=== PATIENT | male | born 1975 | race Caucasian/White ===

== ENCOUNTER 2025-05-16 09:35 | Emergency (ER) | payer OTHER, SELFPAY ==
[2025-05-16 09:40] VITALS: BP 118/84; PULSE 64; RESP 16; TEMP 36.6; O2SAT 99
--- NOTE | 2025-05-16 10:32 | ED.EAR ---
HPI - Ear Problem General Chief complaint: Ear Stated complaint: Ear Pain Time Seen by Provider: 05/16/25 09:50 Source: patient and RN notes reviewed Mode of arrival: ambulatory Limitations: no limitations History of Present Illness HPI Narrative: Patient presents today complaining of left ear redness, pain, swelling since yesterday that has slightly worsened this morning. He has taken Aleve with some improvement. He also reported some feelings of subjective fever yesterday but when take any was 98.9. No swimming but has been golfing outside frequently recently. Denies recent drainage from the ear. Related Data Home Medications ?Medication ?Instructions ?Recorded ?Confirmed ?Last Taken ?Type carvedilol 3.125 mg tablet mg 05/16/25 Unknown History ramipril 2.5 mg capsule mg 05/16/25 Unknown History Allergies Allergy/AdvReac Type Severity Reaction Status Date / Time No Known Allergies Allergy Unverified 06/20/11 16:15 PMFSH Comments At time of signature, I have reviewed and agree with nursing past medical, surgical, social and family history unless otherwise noted. Please see nursing chart for further information. There is no relevant family history pertinent to the presenting complaint Exam Narrative: GENERAL: Well-appearing, well-nourished, and in no acute distress. HEAD: Normocephalic, atraumatic. EYES: EOMI. No redness or drainage. Conjunctivae normal. ENT: Mucous membranes pink and moist. Left ear: TM normal.+ tragal tenderness. No movement tenderness. No mastoid tenderness. Erythema and mild edema to the canal and entire external ear. External ear nontender to palpation. Canal mildly tender to palpation. Erythema and edema does not extend into the neck or face. No debris or drainage in the ear canal. Ear canal is patent enough for ear drops. NECK: Normal AROM. Supple. No lymphadenopathy. CHEST: No respiratory distress. EXTREMITIES: Normal range of motion. No edema. SKIN: Warm, dry, no rash. Capillary refill normal. Normal skin turgor. NEURO: No focal deficits. Alert and oriented x3. Gait steady. PSYCH: Normal affect. No signs of depression or anxiety. Course Course Level of Care: Express Care Visit Vital Signs Vital signs: Vital Signs Temperature 97.9 F 05/16/25 09:40 Pulse Rate 64 05/16/25 09:40 Respiratory Rate 16 05/16/25 09:40 Blood Pressure 118/84 05/16/25 09:40 Pulse Oximetry 99 05/16/25 09:40 Oxygen Delivery Room Air 05/16/25 09:40 Temperature 97.9 F 05/16/25 09:40 Pulse Rate 64 05/16/25 09:40 Respiratory Rate 16 05/16/25 09:40 Blood Pressure 118/84 05/16/25 09:40 Pulse Oximetry 99 05/16/25 09:40 Oxygen Delivery Room Air 05/16/25 09:40 Reviewed Medical Decision Making MDM Narrative Medical decision making narrative: Pleasant 49-year-old male presents with swelling, redness, pain to the left ear canal and external ear consistent with otitis externa with developing pain cellulitis of the external ear. He has not had a fever or drainage from the ear. At this time the canal is patent enough that he does not need a wick. He will be treated with both oral antibiotics (Levaquin) and topical antibiotics (Ciprodex). This will cover for Pseudomonas. At this time, patient is stable enough to be treated outpatient. Patient has been given strict precautions regarding fluoroquinolone use as well as strict ED precautions regarding worsening symptoms. Vital signs stable. Differential Diagnosis Differential Diagnosis: Otitis media, otitis externa, ruptured TM, serous otitis, malignant otitis externa, mastoiditis Vital Signs Vital Signs: Vital Signs Temperature 97.9 F 05/16/25 09:40 Pulse Rate 64 05/16/25 09:40 Respiratory Rate 16 05/16/25 09:40 Blood Pressure 118/84 05/16/25 09:40 Pulse Oximetry 99 05/16/25 09:40 Oxygen Delivery Room Air 05/16/25 09:40 Temperature 97.9 F 05/16/25 09:40 Pulse Rate 64 05/16/25 09:40 Respiratory Rate 16 05/16/25 09:40 Blood Pressure 118/84 05/16/25 09:40 Pulse Oximetry 99 05/16/25 09:40 Oxygen Delivery Room Air 05/16/25 09:40 Critical Care Time Critical Care Time Critical Care Time: No Discharge Plan Discharge Clinical Impression: Cellulitis of left external ear Left otitis externa Qualifiers: Otitis externa type: unspecified type Chronicity: acute Qualified Code(s): H60.502 - Unspecified acute noninfective otitis externa, left ear Patient Disposition: Home Condition: Stable Instructions: Antibiotic Form, Swimmer's Ear (ED) Additional Instructions: You have been diagnosed with a left-sided external ear infection. Please use the ear drops and take the oral antibiotics as prescribed. As discussed, no heavy lifting, squatting, running, or any other exertional activities while you are taking the Levaquin. Keep the ears dry as possible for the next week. Also, if symptoms worsen to include development of fever greater than 100.3, worsening redness or swelling of the ear or face, please go to the ER immediately for further evaluation and treatment. Take Tylenol or ibuprofen for pain if needed. Your blood pressure was elevated above 120/80 today at Urgent Care. This puts you above the threshold for follow up. Please schedule a followup visit with your personal physician as soon as possible, for further evaluation and treatment. Even blood pressure exceeding 120/80 may indicate pre-hypertension. Patient Language: Malay Prescriptions: New levofloxacin 500 mg tablet 500 mg PO DAILY 7 Days Qty: 7 0RF ciprofloxacin-dexamethasone 0.3-0.1 % drops,suspension 4 drp LEFT EAR Q12H 7 Days Qty: 7.5 0RF No Action carvedilol 3.125 mg tablet ramipril 2.5 mg capsule Follow-up/Referrals: PHYSICIAN,HEALTHCARE TRANSLATOR [Primary Care Provider] - Stand Alone Forms: Work/School Release IP Time of Disposition: 10:10
== END 2025-05-16 10:16 | disposition home or self-care (01) ==
PROVIDERS: Emergency Provider Nurse Practitioner
DX: H60.12 Cellulitis of left external ear (principal); H60.502 Unspecified acute noninfective otitis externa, left ear; I10 Essential (primary) hypertension
CPT/HCPCS: 99213; G0463